=== PATIENT | male | born 1980 | race Native Hawaiian/Other Pacific Islander ===

== ENCOUNTER 2017-11-08 13:48 | Emergency (ER) | payer SELFPAY ==
[2017-11-08 15:24] VITALS: BP 114/66
[2017-11-08] MEDS ORDERED: MOTRIN PO ONE (16:42)
--- NOTE | 2017-11-08 16:55 | Emergency Department Report ---
- General Chief complaint: Skin/Abscess/Foreign Body Stated complaint: INSECT BITE Time Seen by Provider: 11/08/17 16:27 Source: patient Mode of arrival: Ambulatory Limitations: No Limitations - History of Present Illness Initial comments: 36-year-old male with past medical history none presents with complaint of indurated itchy lesion to left medial forearm. Patient speaks [place] just because lately. Patient states that he was in long-term on approximately 5 days ago. States he had an injection placed in his arm but does not know what it was for indicates it may have been suffered tuberculosis. I showed patient a picture and video of what TB skin testing looks like and he stated that is exactly what he had done. Patient denies any recent bug bites to area denies any other trauma. Patient states he has had chronic cough for several months but denies any weight loss unexplained joint pain night sweats fevers chills or hemoptysis.patient denies any bug bites or insect stings. MD complaint: rash Onset/Timin -: days(s) Location: LUE (left medial inner forearm) Severity: moderate Quality: aching Consistency: constant - Related Data Previous Rx's Medication Instructions Recorded Last Taken Type Cephalexin [Keflex] 500 mg PO BID #20 capsule 11/08/17 Unknown Rx Ibuprofen [Motrin] 800 mg PO Q8HR PRN #25 tablet 11/08/17 Unknown Rx Allergies Allergy/AdvReac Type Severity Reaction Status Date / Time No Known Allergies Allergy Unverified 11/08/17 15:24 Abscess Boil HPI - HPI Chief Complaint: Skin/Abscess/Foreign Body Stated Complaint: INSECT BITE Time Seen by Provider: 11/08/17 16:27 Home Medications: Previous Rx's Medication Instructions Recorded Last Taken Type Cephalexin [Keflex] 500 mg PO BID #20 capsule 11/08/17 Unknown Rx Ibuprofen [Motrin] 800 mg PO Q8HR PRN #25 tablet 11/08/17 Unknown Rx Allergies/Adverse Reactions: Allergies Allergy/AdvReac Type Severity Reaction Status Date / Time No Known Allergies Allergy Unverified 11/08/17 15:24 ED Review of Systems ROS: Stated complaint: INSECT BITE Other details as noted in HPI Constitutional: denies: chills, fever Eyes: denies: eye pain, eye discharge, vision change ENT: denies: ear pain, throat pain Respiratory: denies: cough, shortness of breath, wheezing Cardiovascular: denies: chest pain, palpitations Endocrine: no symptoms reported Gastrointestinal: denies: abdominal pain, nausea, diarrhea Genitourinary: denies: urgency, dysuria Musculoskeletal: denies: back pain, joint swelling, arthralgia Skin: denies: rash, lesions Neurological: denies: headache, weakness, paresthesias Psychiatric: denies: anxiety, depression Hematological/Lymphatic: denies: easy bleeding, easy bruising ED Past Medical Hx - Medications Home Medications: Home Medications Medication Instructions Recorded Confirmed Last Taken Type Cephalexin [Keflex] 500 mg PO BID #20 capsule 11/08/17 Unknown Rx Ibuprofen [Motrin] 800 mg PO Q8HR PRN #25 tablet 11/08/17 Unknown Rx ED Physical Exam - General Limitations: No Limitations General appearance: alert, in no apparent distress - Head Head exam: Present: atraumatic, normocephalic - Eye Eye exam: Present: normal appearance - ENT ENT exam: Present: mucous membranes moist - Neck Neck exam: Present: normal inspection - Respiratory Respiratory exam: Present: normal lung sounds bilaterally. Absent: respiratory distress - Cardiovascular Cardiovascular Exam: Present: regular rate, normal rhythm. Absent: systolic murmur, diastolic murmur, rubs, gallop - GI/Abdominal GI/Abdominal exam: Present: soft, normal bowel sounds - Rectal Rectal exam: Present: deferred - Extremities Exam Extremities exam: Present: normal inspection - Expanded Upper Extremity Exam Left Forearm Wrist exam: Present: tenderness, erythema (patient has a 10 cm induration with surrounding erythema left medial forearm) - Back Exam Back exam: Present: normal inspection - Neurological Exam Neurological exam: Present: alert, oriented X3 - Psychiatric Psychiatric exam: Present: normal affect, normal mood - Skin Skin exam: Present: warm, dry, intact, normal color. Absent: rash ED Course Vital Signs 11/08/17 15:22 Temperature 98 F Pulse Rate 86 Respiratory 18 Rate Blood Pressure 114/66 O2 Sat by Pulse 96 Oximetry ED Medical Decision Making - Medical Decision Making A/P: PPD skin test left arm, possible cellulitis 1-course of Keflex to cover empirically for possible early cellulitis near PPD skin test site, Motrin when necessary 2-PD induration is approximately 10 mm. It has been 5 days since placement. In context of recent testing although patient is technically out of window for reading of test will interpret as positive. Chest x-ray performed. No visible signs of active tuberculosis on chest x-ray 3-patient referred to health department and primary care. I advised him to return to the ED or to seek out medical attention from the health department if he develops sudden weight loss unexplained fever and chills unexplained joint aches hemoptysis and night sweats 4- chest x-ray is unremarkable. 5- advised patient to return to the ED if cellulitis worsens. Critical care attestation.: If time is entered above; I have spent that time in minutes in the direct care of this critically ill patient, excluding procedure time. ED Disposition Clinical Impression: Positive PPD Disposition: TO HOME OR SELFCARE Is pt being admited?: No Does the pt Need Aspirin: No Condition: Stable Instructions: Tuberculosis (ED), Tuberculin Skin Test (ED), Cellulitis (ED) Additional Instructions: Patient advised to follow-up with health Department Prescriptions: Cephalexin [Keflex] 500 mg PO BID #20 capsule Ibuprofen [Motrin] 800 mg PO Q8HR PRN #25 tablet PRN Reason: Pain Referrals: [facility] [Provider Group] - 3-5 Days [facility] [Outside] - 3-5 Days [facility] [Outside] - 3-5 Days [facility] [Outside] - 3-5 Days Forms: Work/School Release Form(ED) Time of Disposition: 17:56 Print Language: FRENCH
--- NOTE | 2017-11-08 18:24 | XRay Report ---
FINAL REPORT EXAM: XR CHEST ROUTINE 2V HISTORY: + PPD, cough TECHNIQUE: 2 views of the chest. PRIORS: None. FINDINGS: The cardiomediastinal silhouette appears normal. The lungs are clear. The bones and soft tissues are unremarkable. IMPRESSION: No evidence of acute cardiopulmonary disease
== END 2017-11-08 18:18 | disposition home or self-care (01) ==
LOC: ED 13:48
DX: L03.114 Cellulitis of left upper limb (principal); R76.11 Nonspecific reaction to tuberculin skin test without active tuberculosis
CPT/HCPCS: 71046; 99283